=== PATIENT | female | born 1950 | race Caucasian/White ===

== ENCOUNTER → 2023-05-19 | Outpatient (CLI) | payer MEDICARE ==
[2023-05-19 09:50] VITALS: BP 121/80; PULSE 65; RESP 15; TEMP 98.4
--- NOTE | 2023-05-19 14:53 | P.PAINPG ---
PQRS Measure Charge Sheet Comment: HISTORY OF PRESENT ILLNESS: A 73 yr old female as a referral from [facility] presents today w severe and chronic LBP x 6 mos secondary to DDD, spondylosis and facet arthropathy without myelopathy for evaluation. Pt states pain level is provoked at 8/10 in intensity, constant, localized in the lower lumbar spine, predominantly axial, dull in character without shooting pain. Pain is provoked by bending. Pain is alleviated by PT x 6 wks in Mar- Apr 2023, physician guided home stretches daily since Apr 2023, repositioning and rest. Oswestry axial pain score at 24. PMH: OA, HTN, DM II PSH: Section, Cholecystectomy SH: Former tobacco user, No ETOH use, No illicit drug use FH: Non contributory All: See list Meds: See list REVIEW OF ORGAN SYSTEMS: CONSTITUTIONAL: No fevers or chills. No recent weight loss. NEUROLOGICAL: + numbness and tingling along the distal extremities. No seizure disorders or headaches. MUSCULOSKELETAL: + pain PSYCHIATRIC: Denies current depression or suicidal thoughts. Physical Examinations : Constitutional : Cooperative , not in acute distress . Neurologic : Cranial nerve II to XII intact. No focal neurological deficits. Psychiatric : alert & oriented x 3. Matching mood & appropriate affect. Judgment & insight intact. Musculoskeletal : Cervical Spine Motor strength in the deltoid and biceps: Normal right side. Normal Left side Motor strength biceps and the wrist extensors: Normal right side . Normal left side Motor strength in the triceps muscle: Normal right side. Normal left side Deep tendon reflexes: Normal at the biceps. Normal at Brachioradialis. Normal at triceps Vertebral body tenderness to deep palpation over Cervical facet loading test: positive bilaterally Spurling test: positive bilaterally Neck distraction test: positive bilaterally Yanci sign: positive bilaterally Lumbar spine Motor strength lower extremities ,thigh and legs 5/5 Right side , 5/5 Left side Deep tendon reflexes : Normal Knee Jerk. Normal Ankle Jerk Vertebral body tenderness over L4 Betancourt Test positive Lumbar facet Loading Test: positive Right / positive Left Range of motion of the lumbar spine Flexion 30 degrees, extension 10 degrees Straight Leg Raise test: Left/ Right positive at 35 degrees Scar test: positive right / positive left. Severe tenderness over the Sacroiliac joint on the Right / Left sides Gaenslen test: positive bilaterally Seated flexion test: positive bilaterally. Sacral spine : Severe tenderness over the Sacroiliac joint: right side / left side Range of motion: Flexion of the lumbar spine <60 degrees Range of motion: Extension of the lumbar spine <20 degrees Gaenslen's Test positive Scar test: positive right side / left side Thigh Thrust Test Sacral Thrust Test Imaging: MRI noncontrast of the lumbar spine from 03/23/23 reviewed Assessment/ Plan : Lumbar DDD Recommendation of ELFEGO L4-L5 #1. May need a series of injections for optimal pain relief. Risks, benefits of procedure discussed and patient verbalized understanding. Admits to anti- coagulant use or medical history of diabetes. Protocol for discontinuation/ continuation of medications michelle procedure discussed. Minimal anesthesia provided, if clinically indicated, consisting of Versed and Fentanyl. All questions answered. I have spent greater than 30 minutes on patient care today. Dr Bliss was available by phone for the evaluation of this patient. The time was used to review the medical records including relevant urine studies and Prescription history (MAPs), review of the available imaging, evaluation and examination of the patient, coordination of care with the medical staff and if applicable referring physicians, as well as creation of the medical record PQRS Narrative: Smoking Status Former smoker Home Medications: Ambulatory Orders ALPRAZolam [Xanax] 0.25 mg PO HS PRN 05/05/17 Ascorbic Acid [Vitamin C] 500 mg PO DAILY 05/05/17 Aspirin EC [Ecotrin Low Dose] 81 mg PO HS 05/05/17 Atorvastatin [Lipitor] 40 mg PO HS 05/05/17 Baclofen [Lioresal] 10 mg PO TID PRN 05/05/17 Cholecalciferol [Vitamin D3] 1,000 unit PO DAILY 05/05/17 Cyanocobalamin (Vitamin B-12) [Vitamin B-12] 1,000 mcg PO HS 05/05/17 HYDROcodone/APAP 5-325MG [[place] 5-325] 1 tab PO Q6H PRN 05/05/17 INSULIN ASPART (NovoLOG) [NovoLOG] 4 - 6 unit SQ AC-TID 05/05/17 Ibuprofen [Motrin] 600 mg PO Q8HR PRN #20 tab 05/05/17 Insulin Glargine [Lantus] 40 unit SQ HS 05/05/17 Magnesium 200 mg PO HS 05/05/17 Metoprolol Succinate (ER) [Toprol Xl] 12.5 mg PO DAILY 05/05/17 Vitamin B Complex 1 cap PO DAILY 05/05/17 lisinopriL [Zestril] 5 mg PO DAILY 05/05/17 Controlled Substance Measures - Controlled Substance Measures Is patient prescribed a controlled substance at discharge?: No
== END ==
LOC: PNWHC3 08:52
PROVIDERS: ATTEND Specialist
DX: M51.16 Intervertebral disc disorders with radiculopathy, lumbar region (principal); M47.26 Other spondylosis with radiculopathy, lumbar region; M19.90 Unspecified osteoarthritis, unspecified site; I10 Essential (primary) hypertension; E11.9 Type 2 diabetes mellitus without complications; Z87.891 Personal history of nicotine dependence; Z79.82 Long term (current) use of aspirin; Z88.1 Allergy status to other antibiotic agents; Z88.8 Allergy status to other drugs, medicaments and biological substances; Z91.041 Radiographic dye allergy status; Z79.899 Other long term (current) drug therapy; Z79.4 Long term (current) use of insulin
CPT/HCPCS: 99211

== ENCOUNTER 2023-06-08 06:46 | Day surgery (SDC) | payer MEDICARE ==
[~2023-06-08 06:46] MED LIST: LACTATED RINGERS 1,000 ML IV SCH
[2023-06-08 07:31] VITALS: RESP 20; TEMP 97
[2023-06-08 07:45] LABS: Glucose,Whole Blood 161 mg/dL (70-110)
[2023-06-08] MEDS ORDERED: IOPAMIDOL M200 10 ML VIAL ONE (08:19)
[2023-06-08] MEDS ORDERED: ROPIVACAINE 5MG/ML 20ML VIAL ONE (08:19)
[2023-06-08] MEDS ORDERED: methylPREDNISolone ACETATE 80 MG/ML 1 ML VIAL ONE (08:19)
--- NOTE | 2023-06-08 08:33 | P.PCN ---
Description of Procedure: PREOPERATIVE DIAGNOSIS: 1- Lumbar Degenerative Disc Diseases 2-Lumbar spondylosis with Facet arthropathy without myelopathy. 3-lumbar spinal stenosis POSTOPERATIVE DIAGNOSIS: 1-lumbar degenerative disc disease. 2-lumbar spondylosis with facet arthropathy without myelopathy. 3-lumbar spinal stenosis. PROCEDURE Injection of radial contrast material into L45 interspace, interpretation of epidurogram, injection of steroid at L4 5 epidural space under fluoroscopic guidance. ANESTHESIA: Lidocaine 1% subcutaneously. In OR continuous pulse ox, EKG, blood pressure and volleyball complication was maintained with the patient. EBL: Minimal PROCEDURE INDICATION: Before the procedure were discussed with the patient deta iled procedure, alternatives, complications including infection, bleeding, nerve damage, paralysis all of which could be permanent. Patient understands and all questions were answered. PROCEDURE DESCRIPTION : After getting consent, patient in OR in prone position. Back was prepped with chlorhexidine and draped in sterile fashion. After injecting 10 mL of 1% lidocaine subcutaneously, a 20-gauge Tuohy needle was introduced at L4 5 interspace with loss of resistance technique using a syringe filled with air. Negative CSF, negative blood, negative paresthesia. Needle position was confirmed with AP and lateral view of the fluoroscope. After repeat negative aspiration 2 mL of Omnipaque 200 water soluble contrast was injected. Contrast was noted in the epidural space. No contrast was noted into intrathecal or intravascular space. After repeat negative aspiration 6 mL solution was injected intermittently which consists of 5 mL of preservative-free normal saline mixed with 1 mL of 80 mg Depo-Medrol. Needle was withdrawn intact. Skin was cleansed and Band-Aids was applied. DISPOSITION / PLANS: The patient tolerated the procedure well. No complication. The patient was placed in a supine position and transferred to the recovery area in a stable condition for observation. There was no evidence of lower extremity motor or sensory deficit after the procedure. Patient was discharged from the recovery room after meeting discharge criteria. Home discharge instructions were given to the patient by the staff. The patient was reexamined prior to discharge. The patient will schedule a follow up in the clinic in 2-4 weeks.
[2023-06-08 09:00] VITALS: BP 161/63; PULSE 74
--- NOTE | 2023-06-08 09:44 | FL ---
EXAMINATION TYPE: FL guided pain mgmt statistic DATE OF EXAM: 06/08/2023 HISTORY: Fluoroscopy time Total dose area product (DAP) in uGy*m?, mGy*cm? (or similar): 0.95231 IMPRESSION: 1. Fluoroscopy time.
== END 2023-06-08 08:55 | disposition home or self-care (01) ==
LOC: ORPAIN 06:46
PROVIDERS: ATTEND Pain Medicine Interventional Pain Medicine
DX: M51.36 Other intervertebral disc degeneration, lumbar region (principal); M47.816 Spondylosis without myelopathy or radiculopathy, lumbar region; M48.061 Spinal stenosis, lumbar region without neurogenic claudication; Z88.0 Allergy status to penicillin; Z79.82 Long term (current) use of aspirin
CPT/HCPCS: 62323; J1040; Q9966; J2795

== ENCOUNTER → 2023-06-28 | Outpatient (CLI) | payer MEDICARE ==
[2023-06-28 10:39] VITALS: BP 138/72; PULSE 72; RESP 15; TEMP 98.6
--- NOTE | 2023-06-28 10:47 | P.PAINPG ---
PQRS Measure Charge Sheet Comment: HISTORY OF PRESENT ILLNESS: A 73 yr old female presents today w severe and chronic LBP x 6 mos secondary to DDD, spondylosis and facet arthropathy without myelopathy for evaluation s/p ELFEGO L4-L5 #1. Pt states she experienced 90% pain relief x 2 wks s/p procedure. Pt states pain level is provoked at 1/10 in intensity, constant, localized in the lower lumbar spine, predominantly axial, dull in character without shooting pain. Pain is provoked by bending. Pain is alleviated by PT x 6 wks in Mar- Apr 2023, physician guided home stretches daily since Apr 2023, repositioning and rest. Oswestry axial pain score at 22. Interventional procedures include ELFEGO L4-L5 x1 Medications include DENIES REVIEW OF ORGAN SYSTEMS: CONSTITUTIONAL: No fevers or chills. No recent weight loss. NEUROLOGICAL: + numbness and tingling along the distal extremities. No seizure disorders or headaches. MUSCULOSKELETAL: + pain PSYCHIATRIC: Denies current depression or suicidal thoughts. Physical Examinations : Constitutional : Cooperative , not in acute distress . Neurologic : Cranial nerve II to XII intact. No focal neurological deficits. Psychiatric : alert & oriented x 3. Matching mood & appropriate affect. Judgment & insight intact. Musculoskeletal : Cervical Spine Motor strength in the deltoid and biceps: Normal right side. Normal Left side Motor strength biceps and the wrist extensors: Normal right side . Normal left side Motor strength in the triceps muscle: Normal right side. Normal left side Deep tendon reflexes: Normal at the biceps. Normal at Brachioradialis. Normal at triceps Vertebral body tenderness to deep palpation over Cervical facet loading test: positive bilaterally Spurling test: positive bilaterally Neck distraction test: positive bilaterally Yanci sign: positive bilaterally Lumbar spine Motor strength lower extremities ,thigh and legs 5/5 Right side , 5/5 Left side Deep tendon reflexes : Normal Knee Jerk. Normal Ankle Jerk Vertebral body tenderness over L4 Betancourt Test positive Lumbar facet Loading Test: positive Right / positive Left Range of motion of the lumbar spine Flexion 30 degrees, extension 10 degrees Straight Leg Raise test: Left/ Right positive at 35 degrees Taut bands w twitch responses over BL T10 - L4 Scar test: positive right / positive left. Severe tenderness over the Sacroiliac joint on the Right / Left sides Gaenslen test: positive bilaterally Seated flexion test: positive bilaterally. Sacral spine : Severe tenderness over the Sacroiliac joint: right side / left side Range of motion: Flexion of the lumbar spine <60 degrees Range of motion: Extension of the lumbar spine <20 degrees Gaenslen's Test positive Scar test: positive right side / left side Thigh Thrust Test Sacral Thrust Test Imaging: MRI noncontrast of the lumbar spine from 03/23/23 reviewed Assessment/ Plan : Lumbar DDD Recommendation of BL T10-L4 TPIs. May need a series of injections for optimal pain relief. Risks, benefits of procedure discussed and patient verbalized understanding. Admits to anti- coagulant use or medical history of diabetes. Pro tocol for discontinuation/ continuation of medications michelle procedure discussed. All questions answered. I have spent greater than 30 minutes on patient care today. Dr Bliss was available by phone for the evaluation of this patient. The time was used to review the medical records including relevant urine studies and Prescription history (MAPs), review of the available imaging, evaluation and examination of the patient, coordination of care with the medical staff and if applicable referring physicians, as well as creation of the medical record - Pain Location Bilateral Lower Back Pharmacological Interventions: Epidural PQRS Narrative: Smoking Status Former smoker Hx Alcohol Use (MH) No Home Medications: Ambulatory Orders ALPRAZolam [Xanax] 0.25 mg PO HS PRN 05/05/17 Cholecalciferol [Vitamin D3] 2,000 unit PO QAM 05/05/17 Cyanocobalamin (Vitamin B-12) [Vitamin B-12] 1,000 mcg PO QAM 05/05/17 lisinopriL [Zestril] 10 mg PO QAM 05/05/17 Aspirin [Adult Low Dose Aspirin EC] 81 mg PO HS 05/31/23 Insulin NPH Hum/Reg Insulin Hm [Novolin 70-30 Flexpen] 5 unit SQ HS 05/31/23 Insulin NPH Hum/Reg Insulin Hm [Novolin 70-30 Flexpen] 10 unit SQ QAM 05/31/23 Lysine [l-Lysine] 500 mg PO QAM 05/31/23 Multivit-Min/Iron/Folic/Lutein [Centrum Silver Women Tablet] 1 tab PO QAM 05/31/23 Omeprazole 20 mg PO BID 05/31/23 Oxybutynin Chloride [oxyBUTYnin chloride ER] 10 mg PO QAM 05/31/23 Vitamin C/Biotin [Hair, Skin and Nails Chew] 2 tab PO QAM 05/31/23 carvediloL [Coreg] 6.25 mg PO BID 05/31/23 metFORMIN HCL [Glucophage] 500 mg PO BID-W/MEALS 05/31/23 Controlled Substance Measures - Controlled Substance Measures Is patient prescribed a controlled substance at discharge?: No
== END ==
LOC: PNWHC3 09:45
PROVIDERS: ATTEND Specialist
DX: M51.36 Other intervertebral disc degeneration, lumbar region (principal); Z88.0 Allergy status to penicillin; Z88.1 Allergy status to other antibiotic agents; Z91.041 Radiographic dye allergy status; Z79.82 Long term (current) use of aspirin; Z87.891 Personal history of nicotine dependence
CPT/HCPCS: 99211

== ENCOUNTER 2023-07-06 08:12 | Day surgery (SDC) | payer MEDICARE ==
[2023-07-01 09:39] VITALS: BMI 29.0
[2023-07-06] MEDS ORDERED: LACTATED RINGERS 1,000 ML IV SCH (08:50)
[2023-07-06 09:12] LABS: Glucose,Whole Blood 242 mg/dL (70-110)
[2023-07-06 09:30] VITALS: RESP 16; TEMP 96.8
[2023-07-06] MEDS ORDERED: ROPIVACAINE 5MG/ML 20ML VIAL ONE (09:38)
[2023-07-06] MEDS ORDERED: methylPREDNISolone ACETATE 40 MG/ML 1 ML VIAL ONE (09:38)
[2023-07-06 10:17] VITALS: BP 147/82; PULSE 69
--- NOTE | 2023-07-06 11:14 | P.PCN ---
Description of Procedure: Preprocedure diagnosis. Myofascial pain. Myofascial trigger point. Postprocedure diagnosis. As above. Procedure done. Myofascial trigger point injection with local anesthetics and steroid at 3 points. Anesthesia. Local anesthetic infiltration. In the OR continuous pulse ox, EKG, blood pressure, and verbal communication was maintained with the patient. Blood loss. None. Indication. Discussed with the patient procedure, alternatives and possible complications which may include infection, bleeding, nerve damage, aggravation of pain. Patient understands and all questions were answered. Procedure note. After getting consent patient in the procedure area. Most tender points were identified and marked. A 25-gauge needle attached to syringe was introduced at the trigger points and after negative aspiration 5 mL solution injected at each trigger point. I injected 3 trigger points over the right posterior chest wall in RIGHT rhomboid , erector spinae and trapezius muscles. At each trigger point 5 mL solution was used which consists of 4 mL of 0.5% ropivacaine mixed with 10 mg of Depo-Medrol. Disposition. Patient tolerated the procedure well. No complication. Discharged home in stable condition.
== END 2023-07-06 10:04 | disposition home or self-care (01) ==
LOC: ORPAIN 08:12
PROVIDERS: ATTEND Pain Medicine Interventional Pain Medicine
DX: M96.1 Postlaminectomy syndrome, not elsewhere classified (principal); E11.9 Type 2 diabetes mellitus without complications; Z88.0 Allergy status to penicillin; Z79.82 Long term (current) use of aspirin; Z79.4 Long term (current) use of insulin
CPT/HCPCS: 20553; J1030; J2795

== ENCOUNTER → 2023-08-16 | Outpatient (CLI) | payer MEDICARE ==
[2023-08-16 11:15] VITALS: BP 134/86; PULSE 65; RESP 16
--- NOTE | 2023-08-16 14:00 | P.PAINPG ---
PQRS Measure Charge Sheet Comment: HISTORY OF PRESENT ILLNESS: A 73 yr old female presents today w severe and chronic LBP x 6 mos secondary to DDD, spondylosis and facet arthropathy without myelopathy for evaluation s/p BL T10-L4 TPIs #1. Pt states she experienced 75% pain relief x 6 wks s/p procedure. Pt states pain level is provoked at 1/10 in intensity, constant, localized in the lower lumbar spine, predominantly axial, dull in character w occasional shooting pain towards the BL hips. Pain is provoked by bending. Pain is alleviated by PT x 6 wks in Mar- Apr 2023, physician guided home stretches daily since Apr 2023, repositioning and rest. Oswestry axial pain score at 20. Interventional procedures include ELFEGO L4-L5 x1, BL T10-L4 TPIs x1 Medications include DENIES REVIEW OF ORGAN SYSTEMS: CONSTITUTIONAL: No fevers or chills. No recent weight loss. NEUROLOGICAL: + numbness and tingling along the distal extremities. No seizure disorders or headaches. MUSCULOSKELETAL: + pain PSYCHIATRIC: Denies current depression or suicidal thoughts. Physical Examinations : Constitutional : Cooperative , not in acute distress . Neurologic : Cranial nerve II to XII intact. No focal neurological deficits. Psychiatric : alert & oriented x 3. Matching mood & appropriate affect. Judgment & insight intact. Musculoskeletal : Cervical Spine Motor strength in the deltoid and biceps: Normal right side. Normal Left side Motor strength biceps and the wrist extensors: Normal right side . Normal left side Motor strength in the triceps muscle: Normal right side. Normal left side Deep tendon reflexes: Normal at the biceps. Normal at Brachioradialis. Normal at triceps Vertebral body tenderness to deep palpation over Cervical facet loading test: positive bilaterally Spurling test: positive bilaterally Neck distraction test: positive bilaterally Yanci sign: positive bilaterally Lumbar spine Motor strength lower extremities ,thigh and legs 5/5 Right side , 5/5 Left side Deep tendon reflexes : Normal Knee Jerk. Normal Ankle Jerk Vertebral body tenderness over L4 Betancourt Test positive Lumbar facet Loading Test: positive Right / positive Left Range of motion of the lumbar spine Flexion 30 degrees, extension 10 degrees Straight Leg Raise test: Left/ Right positive at 35 degrees Taut bands w twitch responses over BL T10 - L4 Scar test: positive right / positive left. Severe tenderness over the Sacroiliac joint on the Right / Left sides Gaenslen test: positive bilaterally Seated flexion test: positive bilaterally. Sacral spine : Severe tenderness over the Sacroiliac joint: right side / left side Range of motion: Flexion of the lumbar spine <60 degrees Range of motion: Extension of the lumbar spine <20 degrees Gaenslen's Test positive Scar test: positive right side / left side Thigh Thrust Test Sacral Thrust Test Imaging: MRI noncontrast of the lumbar spine from 03/23/23 reviewed Assessment/ Plan : Lumbar DDD Will manage residual pain and may RTC on an as needed basis. All questions answered. I have spent greater than 30 minutes on patient care today. Dr Bliss was available by phone for the evaluation of this patient. The time was used to review the medical records including relevant urine studies and Prescription history (MAPs), review of the available imaging, evaluation and examination of the patient, coordination of care with the medical staff and if applicable referring physicians, as well as creation of the medical record PQRS Narrative: Smoking Status Former smoker Hx Alcohol Use (MH) No Home Medications: Ambulatory Orders Cholecalciferol [Vitamin D3] 2,000 unit PO QAM 05/05/17 Cyanocobalamin (Vitamin B-12) [Vitamin B-12] 1,000 mcg PO QAM 05/05/17 lisinopriL [Zestril] 10 mg PO QAM 05/05/17 Aspirin [Adult Low Dose Aspirin EC] 81 mg PO HS 05/31/23 Insulin NPH Hum/Reg Insulin Hm [Novolin 70-30 Flexpen] 5 unit SQ HS 05/31/23 Insulin NPH Hum/Reg Insulin Hm [Novolin 70-30 Flexpen] 10 unit SQ QAM 05/31/23 Lysine [l-Lysine] 1,000 mg PO QAM 05/31/23 Multivit-Min/Iron/Folic/Lutein [Centrum Silver Women Tablet] 1 tab PO QAM 05/31/23 Omeprazole 20 mg PO BID 05/31/23 Oxybutynin Chloride [oxyBUTYnin chloride ER] 10 mg PO QAM 05/31/23 Vitamin C/Biotin [Hair, Skin and Nails Chew] 2 tab PO QAM 05/31/23 carvediloL [Coreg] 6.25 mg PO BID 05/31/23 metFORMIN HCL [Glucophage] 500 mg PO BID-W/MEALS 05/31/23 Controlled Substance Measures - Controlled Substance Measures Is patient prescribed a controlled substance at discharge?: No
== END ==
LOC: PNWHC3 10:39
PROVIDERS: ATTEND Specialist
DX: M51.36 Other intervertebral disc degeneration, lumbar region (principal); M47.816 Spondylosis without myelopathy or radiculopathy, lumbar region; Z87.891 Personal history of nicotine dependence; Z79.82 Long term (current) use of aspirin; Z88.1 Allergy status to other antibiotic agents; Z91.041 Radiographic dye allergy status
CPT/HCPCS: 99211

== ENCOUNTER 2024-10-05 10:34 | Outpatient (CLI) | payer MEDICARE ==
[~2024-10-05 10:34] MED LIST changes: -LACTATED RINGERS 1,000 ML IV SCH; +SODIUM CHLORIDE 0.9% 250 ML in EMPTY BAG 1 BAG IV PRN
[2024-10-05 10:50] VITALS: BP 138/80; PULSE 55; RESP 16; TEMP 97.7
[2024-10-05] MEDS: ZOLEDRONIC ACID IVPB NR (10:50)
[2024-10-05] MEDS: SODIUM CHLORIDE 0.9% 500 ML 500 ML in EMPTY BAG 1 BAG IV PRN (10:51)
== END 2024-10-05 13:11 | disposition home or self-care (01) ==
LOC: PROCWHC3 10:34
PROVIDERS: ATTEND Internal Medicine
DX: M81.0 Age-related osteoporosis without current pathological fracture (principal)
CPT/HCPCS: 96365; J3489